=== PATIENT | female | born 1985 | race Caucasian/White ===

== ENCOUNTER 2023-02-27 09:33 | Emergency (ER) | payer OTHER ==
[~2023-02-27] VITALS: Ht 160 cm; Wt 69.5 kg
[2023-02-27] MEDS ORDERED: ONDANSETRON ODT8 MG PO (12:17)
[2023-02-27 12:28] VITALS: BP 106/67
== END 2023-02-27 12:30 | disposition home or self-care (01) ==
LOC: ED 09:33
DX: R10.9 Unspecified abdominal pain (principal)
CPT/HCPCS: 81001; 84703; 99284; A9270